=== PATIENT | male | born 1955 | race Caucasian/White ===

== ENCOUNTER 2023-02-01 14:53 | Emergency (ER) | payer BC, SELFPAY ==
[2023-02-01] VITALS (13 sets, daily range): BP systolic 144–189; BP diastolic 88–111; PULSE 66–106; RESP 20–30; TEMP 36.5; O2SAT 95–98; BMI 27.1
--- NOTE | 2023-02-01 15:06 | DI.RAD.S_ITS ---
PROCEDURE: XR CHEST 1V INDICATIONS: chest pain TECHNIQUE: One view of the chest was acquired. COMPARISON: [facility], CR, XR CHEST 2 VIEWS, 01/17/2022, 14:13. [facility], CR, XR CHEST 2 VIEWS, 05/08/2021, 14:47. FINDINGS: Surgical changes and devices: Surgical clips within the left neck. Lungs and pleura: Multifocal peripheral hazy opacities with interstitial markings most prominent in the periphery of the right lung. No pleural effusions or pneumothorax. Mediastinum: Mediastinal contours appear normal. Heart size is normal. Bones and chest wall: No suspicious bony lesions. Overlying soft tissues appear unremarkable. IMPRESSION: Multifocal peripheral hazy airspace opacities concerning for atypical infection. Interstitial markings are nonspecific and may represent pulmonary edema, interstitial lung disease, or typical flexion. Dictated by: Sohail Geronimo M.D. on 02/01/2023 at 14:57 Approved by: Sohail Geronimo M.D. on 02/01/2023 at 15:01
[2023-02-01 15:19] LABS: Add Manual Diff / Slide Review NO; Basophils Absolute Auto 100 /uL (0-100); Basophils Percent Auto 0.9 % (0-2); Eosinophils Absolute Auto 200 /uL (0-450); Eosinophils Percent Auto 3.4 % (2-4); Hematocrit 46.6 % (41-53); Hemoglobin 16.4 g/dL (13.5-17.5); Lymphocytes Absolute Auto 2200 /uL (1100-4500); Lymphocytes Percent Auto 30.8 % (25-40); Mean Corpuscular HGB Conc 35.2 % (30-36); Mean Corpuscular Hemoglobin 32.7 PG (26-34); Mean Corpuscular Volume 92.7 fL (80-100); Monocytes Absolute Auto 700 /uL (0-900); Monocytes Percent Auto 9.7 % (3-14); Neutrophils Absolute Auto 3900 /uL (1500-7000); Neutrophils Percent Auto 55.2 % (50-75); Platelet Count 219 X10^3/uL (150-400); Red Blood Cell Count 5.02 X10^6/uL (4.5-5.9); Red Cell Distribution Width 13.8 % (11.6-14.8); White Blood Cell Count 7.1 X10^3/uL (4.5-11.0)
[2023-02-01 15:21] LABS: PTT Partial Thromboplastin Tim 39 SECONDS (26-36)
[2023-02-01 15:24] LABS: Alanine Aminotransferase 26 IU/L (<50); Albumin 4.5 g/dL (3.5-5.0); Albumin Globulin Ratio 1.3 (1.0-2.8); Alkaline Phosphatase 90 U/L (38-126); Aspartate Aminotransferase 29 IU/L (17-59); BUN Creatinine Ratio 17.2 (6-22); Bilirubin Total 1.1 mg/dL (0.2-1.3); Blood Urea Nitrogen 17 mg/dL (9-20); Calcium 9.4 mg/dL (8.4-10.2); Carbon Dioxide 26 mmol/L (22-32); Chloride 100 mmol/L (98-107); Creatine Kinase 120 U/L (55-170); Estimated Glomerular Filt Rate > 60 mL/min (>60); Globulin 3.4 g/dL (1.7-4.1); Glucose 146 mg/dL (80-110); HEMOLYSIS 19 (0-50); Lipase 143 U/L (23-300); Magnesium 1.9 mg/dL (1.6-2.3); Potassium 4.2 mmol/L (3.4-5.1); Sodium 134 mmol/L (137-145); Total Protein 7.9 g/dL (6.3-8.2)
[2023-02-01 15:33] LABS: NT-proBNP (BNP-Adult 18+) 197 pg/mL (<125)
[2023-02-01 15:35] LABS: Troponin I < 0.012 ng/mL (0.01-0.034)
[2023-02-01] MEDS: ASPIRIN 81 MG CHEW TAB 243 MG PO (15:56)
[2023-02-01] MEDS: METOPROLOL IR 25 MG TABLET 50 MG PO ×2 (16:46→19:12)
--- NOTE | 2023-02-01 18:02 | ED.CHESTPAIN ---
HPI - Chest Pain General Chief Complaint: Chest Pain Stated Complaint: thinks heart attack Time Seen by Provider: 02/01/23 15:52 History of Present Illness HPI narrative: Patient is a 67-year-old male with known coronary artery disease presents today with fluttering in his chest. He was standing outside when he is had some felt some fluttering it lasted for just a few seconds he got lightheaded and then started feeling anxious. He is followed by cardiology and [facility]. Reports last echo was 2 months ago with an EF of about 30% per . He had a cardiac catheterizations was told he had cardiac disease that was non stentable. He denies any shortness of breath he was old dizzy lightheaded. He also reports that he has some left arm tingling which he gets when he is having heart issues. No weakness. Related Data Home Medications Medication Instructions Recorded Confirmed atorvastatin 40 mg tablet 40 mg PO DAILY 02/01/23 02/01/23 empagliflozin 10 mg tablet 10 mg PO DAILY 02/01/23 02/01/23 (Jardiance) metoprolol tartrate 50 mg tablet 50 mg PO BID 02/01/23 02/01/23 ranolazine 500 mg tablet,extended 500 mg PO BID 02/01/23 02/01/23 release,12 hr Allergies Allergy/AdvReac Type Severity Reaction Status Date / Time morphine AdvReac Vomiting Verified 02/01/23 15:07 Review of Systems Review of Systems ROS Unobtainable: All systems reviewed & are unremarkable except as noted in HPI and below Exam Initial Vital Signs Initial Vital Signs: Vital Signs Temperature 97.7 F 02/01/23 15:03 Pulse Rate 106 H 02/01/23 15:03 Respiratory Rate 20 02/01/23 15:03 Blood Pressure 176/111 H 02/01/23 15:03 Pulse Oximetry 98 02/01/23 15:03 Oxygen Delivery Method Room Air 02/01/23 15:03 GENERAL: Alert pleasant 67-year-old male and in no acute distress. HEENT: Head atraumatic,EOMI, pupils reactive, face symmetric, moist mucous membranes CARDIOVASCULAR: Regular rate and rhythm without murmurs, rubs or gallops. RESPIRATORY: Breath sounds equal bilaterally, no wheezes rales or rhonchi. ABDOMEN: Soft, nontender. Normoactive bowel sounds all 4 quadrants. No guarding or rebound. : No CVA tenderness EXTREMITIES: Normal range of motion, no clubbing or edema. Neurovascularly intact NEUROLOGICAL: Alert and oriented x4.Normal gait and speech. SKIN: Warm, dry, no laceration, no petechiae, no rashes or lesions. Course Orders Ordered: ED Orders 02/01/23 15:03 BNP [NT-proBNP (BNP-Adult 18+)] Stat Complete Blood Count AUTO DIFF Stat Comprehensive Metabolic Panel Stat Lipase Stat Magnesium Stat PTT Partial Thromboplastin Javan Stat Prothrombin Time INR Stat Troponin & CK Cardiac Panel Stat 02/01/23 15:06 XR chest 1V Stat EKG-12 Lead Stat 02/01/23 18:00 EKG-12 Lead Stat 02/01/23 18:13 Trop I [Troponin I] Stat Discontinued Medications Aspirin (Aspirin 81 Mg Chew Tab) 324 mg PO NOW ONE Stop: 02/01/23 15:07 Last Admin: 02/01/23 16:02 Dose: Not Given Documented By: DOUG Aspirin (Aspirin 81 Mg Chew Tab) 243 mg PO NOW ONE Stop: 02/01/23 15:47 Last Admin: 02/01/23 15:56 Dose: 243 mg Documented By: DOUG Metoprolol Tartrate (Metoprolol Ir 25 Mg Tablet) 50 mg PO NOW ONE Stop: 02/01/23 16:43 Last Admin: 02/01/23 16:46 Dose: 50 mg Documented By: IVONNE Metoprolol Tartrate (Metoprolol Ir 25 Mg Tablet) 50 mg PO NOW ONE Stop: 02/01/23 19:08 Last Admin: 02/01/23 19:12 Dose: 50 mg Documented By: DOUG Vital Signs Vital signs: Vital Signs - 8 hr 02/01/23 15:03 02/01/23 16:31 02/01/23 16:00 Temperature 97.7 F Pulse Rate 106 H 93 H 97 H Respiratory Rate 20 25 H 21 Blood Pressure 176/111 H 181/97 H Pulse Oximetry 98 96 96 Oxygen Delivery Method Room Air Room Air Room Air 02/01/23 16:30 02/01/23 16:45 02/01/23 17:00 Temperature Pulse Rate 94 H 92 H Respiratory Rate 20 27 H Blood Pressure 189/102 H 157/97 H Pulse Oximetry 97 96 Oxygen Delivery Method Room Air 02/01/23 17:00 02/01/23 17:15 02/01/23 18:05 Temperature Pulse Rate 91 H 93 H 71 Respiratory Rate 26 H 30 H Blood Pressure Pulse Oximetry 95 96 97 Oxygen Delivery Method 02/01/23 18:07 02/01/23 18:07 02/01/23 18:15 Temperature Pulse Rate 69 67 Respiratory Rate 23 26 H Blood Pressure 144/89 H Pulse Oximetry 96 95 Oxygen Delivery Method 02/01/23 18:30 02/01/23 18:30 02/01/23 18:45 Temperature Pulse Rate 67 66 Respiratory Rate 26 H 25 H Blood Pressure 149/90 H Pulse Oximetry 95 95 Oxygen Delivery Method Room Air 02/01/23 19:00 02/01/23 19:00 Temperature Pulse Rate 66 Respiratory Rate 23 Blood Pressure 153/88 H Pulse Oximetry 95 Oxygen Delivery Method Room Air MDM - Chest Pain Lab Data 02/01/23 15:03 02/01/23 15:03 Labs: Lab Results 02/01/23 02/01/23 02/01/23 Range/Units 15:03 15:03 15:03 WBC 7.1 (4.5-11.0) X10^3/uL RBC 5.02 (4.5-5.9) X10^6/uL Hgb 16.4 (13.5-17.5) g/dL Hct 46.6 (41-53) % MCV 92.7 (80-100) fL MCH 32.7 (26-34) PG MCHC 35.2 (30-36) % RDW 13.8 (11.6-14.8) % Plt Count 219 (150-400) X10^3/uL Neut % (Auto) 55.2 (50-75) % Lymph % (Auto) 30.8 (25-40) % [place] % (Auto) 9.7 (3-14) % Eos % (Auto) 3.4 (2-4) % Baso % (Auto) 0.9 (0-2) % Neut # (Auto) 3900 (0597-8737) /uL Lymph # (Auto) 2200 (6419-5277) /uL [place] # (Auto) 700 (0-900) /uL Eos # (Auto) 200 (0-450) /uL Baso # (Auto) 100 (0-100) /uL PT 12.0 (10.1-12.7) SECONDS INR 1.0 (0.9-1.3) APTT 39 H (26-36) SECONDS Sodium 134 L (137-145) mmol/L Potassium 4.2 (3.4-5.1) mmol/L Chloride 100 (98-107) mmol/L Carbon Dioxide 26 (22-32) mmol/L BUN 17 (9-20) mg/dL Creatinine 0.99 (0.66-1.25) mg/dL Estimated GFR > 60 (>60) mL/min BUN/Creatinine Ratio 17.2 (6-22) Glucose 146 H (80-110) mg/dL Calcium 9.4 (8.4-10.2) mg/dL Magnesium 1.9 (1.6-2.3) mg/dL Total Bilirubin 1.1 (0.2-1.3) mg/dL AST 29 (17-59) IU/L ALT 26 (<50) IU/L Alkaline Phosphatase 90 (38-126) U/L Total Creatine Kinase 120 (55-170) U/L Troponin I < 0.012 (0.01-0.034) ng/mL NT-Pro-B Natriuret Pep (<125) pg/mL Total Protein 7.9 (6.3-8.2) g/dL Albumin 4.5 (3.5-5.0) g/dL Globulin 3.4 (1.7-4.1) g/dL Albumin/Globulin Ratio 1.3 (1.0-2.8) Lipase 143 (23-300) U/L 02/01/23 02/01/23 Range/Units 15:03 18:13 WBC (4.5-11.0) X10^3/uL RBC (4.5-5.9) X10^6/uL Hgb (13.5-17.5) g/dL Hct (41-53) % MCV (80-100) fL MCH (26-34) PG MCHC (30-36) % RDW (11.6-14.8) % Plt Count (150-400) X10^3/uL Neut % (Auto) (50-75) % Lymph % (Auto) (25-40) % [place] % (Auto) (3-14) % Eos % (Auto) (2-4) % Baso % (Auto) (0-2) % Neut # (Auto) (2679-6250) /uL Lymph # (Auto) (0853-9501) /uL [place] # (Auto) (0-900) /uL Eos # (Auto) (0-450) /uL Baso # (Auto) (0-100) /uL PT (10.1-12.7) SECONDS INR (0.9-1.3) APTT (26-36) SECONDS Sodium (137-145) mmol/L Potassium (3.4-5.1) mmol/L Chloride (98-107) mmol/L Carbon Dioxide (22-32) mmol/L BUN (9-20) mg/dL Creatinine (0.66-1.25) mg/dL Estimated GFR (>60) mL/min BUN/Creatinine Ratio (6-22) Glucose (80-110) mg/dL Calcium (8.4-10.2) mg/dL Magnesium (1.6-2.3) mg/dL Total Bilirubin (0.2-1.3) mg/dL AST (17-59) IU/L ALT (<50) IU/L Alkaline Phosphatase (38-126) U/L Total Creatine Kinase (55-170) U/L Troponin I < 0.012 (0.01-0.034) ng/mL NT-Pro-B Natriuret Pep 197 H (<125) pg/mL Total Protein (6.3-8.2) g/dL Albumin (3.5-5.0) g/dL Globulin (1.7-4.1) g/dL Albumin/Globulin Ratio (1.0-2.8) Lipase (23-300) U/L Urine Dip Bedside Urine Glucose 1000 mg/dl Bedside Urine Bilirubin - Negative Bedside Urine Ketone - Negative Urine Specific [place] 1.010 Bedside Urine Occult Blood - Negative Bedside Urine pH 5.5 Bedside Urine Protein - Negative Bedside Urine Urobilinogen - Negative Bedside Urine Nitrite - Negative Bedside Urine Leukocytes - Negative Esterase Imaging Data Chest x-ray: Radiologist's Impression: PROCEDURE:? XR CHEST 1V ? INDICATIONS:? chest pain ? TECHNIQUE:? One view of the chest was acquired.? ? COMPARISON:? [facility], CR, XR CHEST 2 VIEWS, 01/17/2022, 14:13.? [facility], CR, XR CHEST 2 VIEWS, 05/08/2021, 14:47. ? FINDINGS:? ? Surgical changes and devices:? Surgical clips within the left neck. ? Lungs and pleura:? Multifocal peripheral hazy opacities with interstitial markings most prominent in the periphery of the right lung.? No pleural effusions or pneumothorax.? ? Mediastinum:? Mediastinal contours appear normal.? Heart size is normal.? ? Bones and chest wall:? No suspicious bony lesions.? Overlying soft tissues appear unremarkable.? ? IMPRESSION:? Multifocal peripheral hazy airspace opacities concerning for atypical infection. Interstitial markings are nonspecific and may represent pulmonary edema, interstitial lung disease, or typical flexion.? ? Dictated by: Sohail Geronimo M.D. on 02/01/2023 at 14:57 ? ? Approved by: Sohail Geronimo M.D. on 02/01/2023 at 15:0 ECG Data Interpretation: Sinus rhythm rate 104 AL interval 1 6 QRS 154 QTC 502 right bundle-branch block noted no obvious ST changes no priors to compare MDM Narrative Medical decision making narrative: Patient really had like some fluttering in his chest a little bit of lightheadedness it all lasted briefly. He really does not have any chest pain. He did not take his metoprolol this morning he was given a dose in the ED which seems to have helped. Blood work is overall reassuring without SAIMA electrolyte abnormality or troponins. Chest x-ray is negative. He would ambulated to the restroom without any difficulty. Dr. To, cardiolgoy has reviewed patient's chart he is had significant workup he had complete cardiac catheterization in October 2022 which has now been stabilized he had an echo which showed an EF of 45% he is had a Holter monitor. At this time can follow-up as an outpatient he is had pretty significant workup over last couple of days At this time results discussed with patient and along with Cardiology recommendations have outpatient follow-up with stay agree. Discharge Plan Departure Patient Disposition: Home Clinical Impression: Atypical chest pain Instructions: DI for Atypical Chest Pain Activity Restrictions/Additional Instructions: *You have been diagnosed with atypical chest pain *What to do: At this time workup in the ED is overall reassuring please follow-up with Cardiology *Continue to take medications as directed *Follow up with your primary care provider in 2-3 days or call [phone] *Return to ER if you should have increasing chest pain palpitations passing or any new, worsening or concerning symptoms Prescriptions: No Action atorvastatin 40 mg tablet 40 mg PO DAILY metoprolol tartrate 50 mg tablet 50 mg PO BID ranolazine 500 mg tablet extended release 12 hr 500 mg PO BID Jardiance 10 mg tablet 10 mg PO DAILY Stand Alone Forms: Patient Portal/API, Work Release Note
[2023-02-01 18:41] LABS: Troponin I < 0.012 ng/mL (0.01-0.034)
== END 2023-02-01 19:18 | disposition home or self-care (01) ==
PROVIDERS: Emergency Provider Emergency Medicine
DX: I49.8 Other specified cardiac arrhythmias (principal); R07.9 Chest pain, unspecified
CPT/HCPCS: 36415; 71045; 80053; 81003; 82550; 83690; 83735; 83880; 84484; 85025; 85610; 85730; 93005; 99284